=== PATIENT | male | born 1980 ===

== ENCOUNTER 2021-07-27 16:48 | Emergency (ER) | payer SELFPAY | END 2021-07-27 19:23 | LOC: MW.ED 16:48 | DX: Z00.8 Encounter for other general examination (principal); Z88.8 Allergy status to other drugs, medicaments and biological substances; Z86.16 Personal history of COVID-19; Z72.0 Tobacco use; Z20.822 Contact with and (suspected) exposure to COVID-19 | CPT/HCPCS: 80305-QW; 81001; 93005; 99283; U0002 ==